=== PATIENT | male | born 1995 ===

== ENCOUNTER 2023-05-05 10:56 | Outpatient (RCR) | payer OTHER | END 2023-05-21 | LOC: WSOH | DX: S43.431D Superior glenoid labrum lesion of right shoulder, subsequent encounter (principal); Y99.0 Civilian activity done for income or pay ==

== ENCOUNTER → 2023-07-21 | Outpatient (RCR) | payer OTHER | LOC: WSOH | DX: S43.431D Superior glenoid labrum lesion of right shoulder, subsequent encounter (principal); S46.011D Strain of muscle(s) and tendon(s) of the rotator cuff of right shoulder, subsequent encounter; Y99.0 Civilian activity done for income or pay ==

== ENCOUNTER 2023-10-14 07:06 | Day surgery (SDC) | payer OTHER ==
[~2023-10-14] VITALS: Ht 157.5 cm; Wt 76.7 kg
[~2023-10-14 07:06] MED LIST: LR 1,000 ML IV SCH
[2023-10-14] MEDS ORDERED: fentaNYL 50 MCG/ML 2 ML VIAL ONE (07:31)
[2023-10-14] MEDS ORDERED: Midazolam 2 MG/2 ML VIAL ONE (07:31)
[2023-10-14] MEDS ORDERED: Lidocaine PF 2% (20 MG/ML) 5 ML VIAL ONE (07:31)
[2023-10-14 08:02] VITALS: BP 129/82; PULSE 101; TEMP 98.1
[2023-10-14] MEDS ORDERED: EPINEPHrine 1 MG/1 ML Ampule IR ONE (09:06)
[2023-10-14] MEDS ORDERED: Ketorolac 30 MG/ML VIAL ONE (09:35)
[2023-10-14] MEDS ORDERED: fentaNYL 50 MCG/ML 2 ML VIAL IV PRN (09:45)
[2023-10-14] MEDS ORDERED: hydrALAZINE 20 MG/ML 1 ML VIAL IV PRN (09:45)
[2023-10-14] MEDS ORDERED: Ketorolac 30 MG/ML VIAL IV PRN (09:45)
[2023-10-14] MEDS ORDERED: Ondansetron 4 MG/2 ML VIAL IV PRN ×2 (09:45→10:15)
[2023-10-14] MEDS ORDERED: HYDROmorphone 2 MG/1 ML VIAL IV PRN (09:45)
[2023-10-14] MEDS ORDERED: Meperidine 50 MG/ML 1 ML VIAL IV PRN (09:45)
[2023-10-14] MEDS ORDERED: MOTRIN 800800 MG/TAB PO (10:05)
[2023-10-14] MEDS ORDERED: CEPHALEXIN500 M1 PO (10:05)
[2023-10-14] MEDS ORDERED: NORCO 325 MG-51 TAB PO (10:05)
[2023-10-14] MEDS ORDERED: Morphine 4 MG/ML VIAL IV PRN (10:15)
[2023-10-14] MEDS ORDERED: Naloxone 0.4 MG/ML VIAL IV PRN (10:15)
[2023-10-14] MEDS ORDERED: oxyCODONE 5 MG TAB PO PRN ×2 (10:15)
[2023-10-14] MEDS ORDERED: Acetaminophen 500 MG TAB PO SCH (11:01)
[2023-10-14 11:20] VITALS: BP 110/70; PULSE 107; TEMP 97.4
[2023-10-14 11:35] VITALS: BP 107/69; PULSE 106
[2023-10-14 11:50] VITALS: BP 101/74; PULSE 104
[2023-10-14 12:20] VITALS: BP 109/68; PULSE 109
[2023-10-14] MEDS ORDERED: Ibuprofen 800 MG TAB PO SCH (14:01)
--- NOTE | 2023-10-14 14:12 | NUR ---
1120 ASSUMED CARE OF PT FROM [facility] [place] [facility] [place]. PT S/P R SHOULDER SCOPE, WITH INTERSCALENE BLOCK. BULKY DRSG WITH SILK TAPE TO R SHOULDER CDI. RUE IN SLING. NVI DISTALLY WITH DULLED SENSATION, FULL MOVEMENT, AND RAPID CAP REFILL. DENIES COMPLAINT, REPORTS MILD SENSATION OF HEAVINESS IN CHEST WHEN BREATHING, BUT DENIES RESPIRATORY COMPLAINT - PT ED ON ISB. ICE BAG ON R SHOULDER, HAS TOLERATED WATER, PLACED IN HIGH FOLWER'S FOR SHOULDER ELEVATION. C/O ERVIN - TAKES APAP AT HOME, PROVIDED 1 GM APAP PO FOR PAIN, WHICH WAS REPORTEDLY EFFECTIVE. DENIES COMPLAINT AT SURGICAL SITE. AT BEDSIDE. MILDLY TACHY (100-110'S), DENIES ASSOCIATED COMPLAINT, VSS ON RA OTHERWISE. ENCOURAGED FLUIDS. PT HAD ALSO REPORTEDLY RECEIVED A/B-ADRENERGIC IN OR. PROVIDED FOOD/FLUIDS. ED ON SLING USE, BANDAGE/WOUND CARE, FU, S/S TO RTC/CALL SURGEON - VOICES UNDERSTANDING. A&O, NAD, VSS ON RA FOR REMAINDER OF SDC STAY IV DC'D. DC INSTRUCTIONS AND 1WK FU APPT REVIEWED AND PROVIDED. TAKEN TO EXIT IN WC WITH ALL BELONGINS AND PAPERWORK, SLING REFITTED. ASSISTED INTO POV PASSENGER SEAT, DRIVING
== END 2023-10-14 12:50 | disposition home or self-care (01) ==
LOC: SDCO 07:06
DX: S43.431A Superior glenoid labrum lesion of right shoulder, initial encounter (principal); S46.221A Laceration of muscle, fascia and tendon of other parts of biceps, right arm, initial encounter; X58.XXXA Exposure to other specified factors, initial encounter; Y93.9 Activity, unspecified
CPT/HCPCS: A4619; C1713; J0171; J0690; J1885; J2250; J2704; J2795; J3010; J7120